=== PATIENT | female | born 1990 | race Caucasian/White ===

== ENCOUNTER 2017-12-28 16:51 | Emergency (ER) | payer SELFPAY ==
[2017-12-28 17:48] VITALS: TEMP 98.6
--- NOTE | 2017-12-28 18:11 | RAD ---
EXAM DESCRIPTION: Abdomen Flat Upright CLINICAL HISTORY: 27 years, Female, left upper abd, lower lateral chest pain COMPARISON: None. FINDINGS: Nonobstructive bowel gas pattern. No abnormal calcifications. No acute osseous abnormality. IMPRESSION: No acute abnormality. Electronically signed by: Donaldo aVnessa MD 12/28/2017 6:10 PM CDT
--- NOTE | 2017-12-28 18:11 | RAD ---
Chest 2 view on 12/28/2017 CLINICAL INDICATION: Chest pain COMPARISON: None FINDINGS: The lungs are clear. Cardiac, hilar and mediastinal contours are within normal limits. Pulmonary vascularity is within normal limits. No bony abnormality is noted. IMPRESSION: No active disease. Electronically signed by: Ashvin Davis 12/28/2017 6:10 PM CDT
[2017-12-28] MEDS ORDERED: HYDROcodone 7.5MG/APAP 325MG 1 EA TAB PO ONE (18:33)
[2017-12-28] MEDS ORDERED: KETOROLAC TROMETHAMINE INJ 30 MG/ML VIAL IM ONE (18:33)
--- NOTE | 2017-12-28 18:40 | CT ---
EXAM DESCRIPTION: Abdoment/Pelvis w/o Contrast CLINICAL HISTORY: 27 years, Female, left upper abd/flank pain 3d COMPARISON: None. TECHNIQUE: CT of the abdomen and pelvis is performed according to our non contrast protocol. FINDINGS: The lung bases are clear. Liver, spleen, and pancreas are unremarkable except for small accessory splenules. Adrenal glands appear normal. The right kidney contains a 2 mm calculus centrally with no hydronephrosis or ureteral stone. The left kidney is unremarkable. No left-sided renal stones or hydronephrosis. Small bowel loops appear normal in caliber with normal wall thickness. There is no lymphadenopathy, inflammation, or free fluid observed. In the pelvis, the appendix is normal. No inflammation around the cecum or terminal ileum or sigmoid colon. No stones in the distal ureters or bladder. Rectal wall thickness is normal for degree of distention. No free fluid or mass in the pelvis. Uterus and ovaries appear normal. Unsaturated tampon in the vagina incidentally noted. No inguinal or lower pelvic adenopathy. Coronal and sagittal reformatted images confirm the findings. IMPRESSION: No acute upper abdominal process. 2 mm calculus in the central right kidney without obstructive uropathy. No acute pelvic process. This exam was performed according to our departmental dose-optimization program, which includes automated exposure control, adjustment of the mA and/or kV according to patient size and/or use of iterative reconstruction technique. Total DLP equals 1108.97 mGycm. Electronically signed by: Hi Penn MD 12/28/2017 6:39 PM CDT
[2017-12-28] MEDS ORDERED: KETOROLAC TROMETHAMINE INJ 30 MG/ML VIAL IV ONE (18:45)
[2017-12-28] MEDS ORDERED: CYCLOBENZAPRINE HCL 5 MG TAB PO ONE (19:09)
[2017-12-28] MEDS ORDERED: predniSONE 20 MG TAB PO ONE (19:09)
--- NOTE | 2017-12-28 19:12 | ED.PDOC ---
History of Present Illness - General Chief Complaint: General Time Seen by Provider: 12/28/17 17:00 Source: patient Exam Limitations: no limitations - History of Present Illness Initial Comments: the patient is a 27-year-old female presented to the emergency room secondary to left lateral lower rib and upper abdominal discomfort present for the last 3 days. It is worse with movement and taking a deep breath. She has not noted any urinary symptoms. No recent injuries. No bruising. No deformity. No nausea vomiting or diarrhea. No change in appetite. No recent fevers. No constipation. No cough or shortness of breath. Severity: moderate Improving Factors: nothing Worsening Factors: movement Associated Symptoms: denies symptoms Allergies/Adverse Reactions: Allergies NO KNOWN ALLERGY Allergy (Verified 11/27/13 15:19) Home Medications: Ambulatory Orders Cyclobenzaprine HCl [Flexeril] 5 mg PO TID PRN #30 tab 12/28/17 predniSONE [Prednisone] 20 mg PO DAILY #5 tab 12/28/17 Review of Systems - Review of Systems Constitutional: States: no symptoms reported EENTM: States: no symptoms reported Respiratory: States: no symptoms reported Cardiology: States: no symptoms reported Gastrointestinal/Abdominal: States: see HPI Genitourinary: States: no symptoms reported Musculoskeletal: States: see HPI Skin: States: no symptoms reported Neurological: States: no symptoms reported Endocrine: States: no symptoms reported All other Systems: No Change from Baseline Past Medical History (General) - Patient Medical History Hx Seizures: No Hx Stroke: No Hx Dementia: No Hx Asthma: No Hx of COPD: No Hx Cardiac Disorders: No Hx Congestive Heart Failure: No Hx Pacemaker: No Hx Hypertension: No Hx Thyroid Disease: No Hx Diabetes: No Hx Gastroesophageal Reflux: No Hx Renal Disease: No Hx Cancer: No Hx of HIV: No Hx Hepatitis C: No Hx MRSA: No Surgical History: no surgical history - Vaccination History Hx Tetanus, Diphtheria Vaccination: No Hx Influenza Vaccination: No Hx Pneumococcal Vaccination: No Immunizations Up to Date: No - Social History Hx Tobacco Use: No Hx Chewing Tobacco Use: No Hx Alcohol Use: No Hx Substance Use: No Hx Substance Use Treatment: No Hx Depression: No Feels Threatened In Home Enviroment: No Feels Threatened In a Relationship: No Hx Physical Abuse: No Hx Emotional Abuse: No Hx Suspected Abuse: No - Activities of Daily Living Hospice Agency (if applicable):: None - Female History Patient is a Female of Child Bearing Age (10 -59 yrs old): Yes Patient : Yes - Triage Comment ED Triage Comment: hx of a tubal Family Medical History - Family History Mother Family History: Unknown Physical Exam - Physical Exam General Appearance: Alert, No apparent distress Eye Exam: bilateral normal Ears, Nose, Throat: hearing grossly normal, normal ENT inspection, normal pharynx Neck: full range of motion, supple Respiratory: lungs clear, normal breath sounds, no respiratory distress, no accessory muscle use, other - lateral lower left chest wall tenderness to palpation but no defority and no bruising. No crepitus. Cardiovascular/Chest: normal peripheral pulses, regular rate, rhythm, no edema Peripheral Pulses: radial,right: 2+, radial,left: 2+ Gastrointestinal/Abdominal: soft, other - mild left lateral upper abdominal discomfort palpation. Rectal Exam: deferred Back Exam: normal inspection, no CVA tenderness Extremity: non-tender, normal inspection, no pedal edema, normal capillary refill Neurologic: statistical assistant II-XII nml as tested, alert, normal mood/affect, oriented x 3 Skin Exam: normal color Comments: Vital Signs - 24 hr 12/28/17 16:58 Temperature 98.6 F Pulse Rate [ 66 Apical] Respiratory 20 Rate Blood Pressure 123/78 [Left Arm] O2 Sat by Pulse 98 Oximetry Progress - Progress Progress: 12/28/17 19:13 the patient is a 27-year-old female presenting to emergency room secondary to left upper abdominal and lower lateral chest discomfort. I believe this is likely due to strain from a lower lateral thoracic wall muscle such as an intercostal muscle strain. no evidence of a kidney stone or pneumonia was found. No obvious bowel pathology was found. No evidence of urinary tract infection was found. The patient can use topical heat as needed. Oral vvzz-lit-emztuet anti-inflammatory such as ibuprofen or Aleve can be used. She'll be written for low-dose Flexeril for as needed uses a muscle relaxer and prednisone 20 mg daily as an anti-inflammatory additionally. She does need to do stretching exercises and take big deep breaths. ER warnings were given for any significant worsening. She can follow up with her primary care doctor later this week. - Results/Orders Results/Orders: Laboratory Tests 12/28/17 12/28/17 17:25 17:25 Urine Color Yellow Urine Appearance Clear Urine pH 6.0 Ur Specific Clarence >= 1.030 Urine Protein Negative Urine Glucose (UA) Negative Urine Ketones Negative Urine Blood Large H Urine Nitrite Negative Urine Bilirubin Negative Urine Urobilinogen 0.2 Ur Leukocyte Esterase Negative Urine RBC 20-30 H Urine WBC 0-1 Ur Epithelial Cells 5-10 Amorphous Sediment 3+ Urine Bacteria 2+ H Urine Mucus Large Urine HCG, Qual Negative chest x-ray and abdominal x-ray are negative for any acute pathology. CT scan of abdomen and pelvis without contrast showed no evidence of any obstructive stone or significant pathology to explain the patient's pain - EKG/XRAY/CT CT Ordered: No CT Interpretation Call Back: No Departure - Departure Clinical Impression: Intercostal muscle strain Qualifiers: Encounter type: initial encounter Qualified Code(s): S29.011A - Strain of muscle and tendon of front wall of thorax, initial encounter Disposition: Discharge to Home or Self Care Condition: Fair Departure Forms: ED Discharge - Pt. Copy, Patient Portal Self Enrollment Instructions: Muscle Strain (DC) Diet: regular diet Activity: increase activity as tolerated Prescriptions: Cyclobenzaprine HCl [Flexeril] 5 mg PO TID PRN #30 tab PRN Reason: Muscle Spasms predniSONE [Prednisone] 20 mg PO DAILY #5 tab Home Medications: Ambulatory Orders Cyclobenzaprine HCl [Flexeril] 5 mg PO TID PRN #30 tab 12/28/17 predniSONE [Prednisone] 20 mg PO DAILY #5 tab 12/28/17 Additional Instructions: the patient is a 27-year-old female presenting to emergency room secondary to left upper abdominal and lower lateral chest discomfort. I believe this is likely due to strain from a lower lateral thoracic wall muscle such as an intercostal muscle strain. no evidence of a kidney stone or pneumonia was found. No obvious bowel pathology was found. No evidence of urinary tract infection was found. The patient can use topical heat as needed. Oral oetz-vao-ixtrwan anti-inflammatory such as ibuprofen or Aleve can be used. She'll be written for low-dose Flexeril for as needed uses a muscle relaxer and prednisone 20 mg daily as an anti-inflammatory additionally. She does need to do stretching exercises and take big deep breaths. ER warnings were given for any significant worsening. She can follow up with her primary care doctor later this week.
[2017-12-28 19:33] VITALS: BP 106/69; O2SAT 99
== END 2017-12-28 19:33 | disposition home or self-care (01) ==
LOC: ER 16:51
DX: S29.011A Strain of muscle and tendon of front wall of thorax, initial encounter (principal); X58.XXXA Exposure to other specified factors, initial encounter; Y92.9 Unspecified place or not applicable
CPT/HCPCS: 71046; 74019; 74176; 81001; 81025; J1885; J7512